=== PATIENT | female | born 1940 | race Two or more races ===

== ENCOUNTER 2018-04-29 13:40 | Emergency (ER) | payer OTHER ==
[~2018-04-29] VITALS: Ht 154.9 cm; Wt 93.9 kg
[~2018-04-29 13:40] MED LIST: ADULT ASPIRIN81 MG; GLUCOPHAGE XR750 MG; KETO10TA2 PO; LOSARTAN-HCTZ1 EAC2; OMEPRAZOLE20 MG; PRAVASTATIN SOD40 MG; TRAM1TAB98 PO; ULTRAM50 MG; VERAPAMIL ER240 MG
[2018-04-29] MEDS ORDERED: ULTRACET PO (16:15)
[2018-05-03] MEDS ORDERED: FOLGARD TABLET1 EACH PO (13:20)
[2018-05-03] MEDS ORDERED: VERAPAMIL ER240 MG PO (13:20)
== END 2018-04-29 17:42 | disposition home or self-care (01) ==
LOC: ER 13:40
DX: S42.342A Displaced spiral fracture of shaft of humerus, left arm, initial encounter for closed fracture (principal); S00.03XA Contusion of scalp, initial encounter; W18.09XA Striking against other object with subsequent fall, initial encounter; Y93.89 Activity, other specified; Y92.018 Other place in single-family (private) house as the place of occurrence of the external cause; Y99.8 Other external cause status

== ENCOUNTER 2018-05-02 17:52 | Outpatient (CLI) | payer OTHER ==
[~2018-05-02 17:52] MED LIST changes: -FOLGARD TABLET1 EACH PO; -OXYC1TAB9 PO; -VERAPAMIL ER240 MG PO; -XARELTO10 MG PO
[2018-05-03] MEDS ORDERED: FOLGARD TABLET1 EACH PO (13:20)
[2018-05-03] MEDS ORDERED: VERAPAMIL ER240 MG PO (13:20)
== END 2018-05-02 18:11 | disposition home or self-care (01) ==
LOC: LAB 17:52
DX: D64.89 Other specified anemias (principal); E88.89 Other specified metabolic disorders; D68.8 Other specified coagulation defects; N39.0 Urinary tract infection, site not specified; Z22.322 Carrier or suspected carrier of Methicillin resistant Staphylococcus aureus; Z76.89 Persons encountering health services in other specified circumstances; B99.8 Other infectious disease

== ENCOUNTER → 2018-05-02 | Outpatient (CLI) | payer OTHER ==
[~2018-05-02] MED LIST changes: +FOLGARD TABLET1 EACH PO; +OXYC1TAB9 PO; +ULTRACET PO; +VERAPAMIL ER240 MG PO; +XARELTO10 MG PO
== END | disposition home or self-care (01) ==
LOC: RAD 501 13:11
DX: S42.342A Displaced spiral fracture of shaft of humerus, left arm, initial encounter for closed fracture (principal)

== ENCOUNTER 2018-05-04 07:00 | Day surgery (SDC) | payer OTHER ==
[~2018-05-04] VITALS: Ht 154.9 cm; Wt 93.9 kg
[~2018-05-04 07:00] MED LIST changes: +FOLGARD TABLET1 EACH PO; +VERAPAMIL ER240 MG PO
[2018-05-05] MEDS ORDERED: XARELTO10 MG PO (12:57)
[2018-05-05] MEDS ORDERED: OXYC1TAB9 PO (12:58)
== END 2018-05-05 10:00 | disposition home or self-care (01) ==
LOC: CIR.AMB 07:00 → SURH 08:30 → O/R 08:30 → SURH 12:21 → EDSTATUS 12:45 → O/R 15:52 → SURG 15:52 → CIR.AMB 05-05 10:00 → O/R 05-05 13:41 → SURG 05-05 13:41
DX: S42.332A Displaced oblique fracture of shaft of humerus, left arm, initial encounter for closed fracture (principal); M75.122 Complete rotator cuff tear or rupture of left shoulder, not specified as traumatic; M19.012 Primary osteoarthritis, left shoulder

== ENCOUNTER 2018-06-07 13:09 | Outpatient (CLI) | payer OTHER ==
[~2018-06-07 13:09] MED LIST changes: +OXYC1TAB9 PO; +XARELTO10 MG PO
== END 2018-06-07 13:25 | disposition home or self-care (01) ==
LOC: RAD 501 13:09
DX: S42.342D Displaced spiral fracture of shaft of humerus, left arm, subsequent encounter for fracture with routine healing (principal)

== ENCOUNTER 2018-07-26 08:11 | Outpatient (CLI) | payer OTHER | END 2018-07-26 08:23 | disposition home or self-care (01) | LOC: RAD 501 08:11 | DX: S42.342D Displaced spiral fracture of shaft of humerus, left arm, subsequent encounter for fracture with routine healing (principal) ==

== ENCOUNTER 2020-09-29 08:06 | Emergency (ER) | payer OTHER ==
[~2020-09-29] VITALS: Ht 162.6 cm; Wt 88.0 kg
[2020-09-29] MEDS ORDERED: LOSARTAN-HCTZ1 EAC1 PO (08:18)
== END 2020-09-29 14:57 | disposition home or self-care (01) ==
LOC: ER 08:06
DX: R00.2 Palpitations (principal); Z03.818 Encounter for observation for suspected exposure to other biological agents ruled out

== ENCOUNTER 2022-05-11 15:05 | Outpatient (CLI) | payer OTHER ==
[~2022-05-11 15:05] MED LIST changes: +LOSARTAN-HCTZ1 EAC1 PO
== END 2022-05-11 15:09 | disposition home or self-care (01) ==
LOC: RAD 15:05
PROVIDERS: ATTEND Orthopaedic Surgery
DX: M25.562 Pain in left knee (principal)

== ENCOUNTER 2023-02-06 17:58 | Emergency (ER) | payer OTHER ==
[~2023-02-06] VITALS: Ht 162.6 cm; Wt 81.2 kg
== END 2023-02-06 20:45 | disposition home or self-care (01) ==
LOC: ER 17:59
DX: S93.491A Sprain of other ligament of right ankle, initial encounter (principal); X50.9XXA Other and unspecified overexertion or strenuous movements or postures, initial encounter; Y93.89 Activity, other specified; Y92.89 Other specified places as the place of occurrence of the external cause; I10 Essential (primary) hypertension; E11.9 Type 2 diabetes mellitus without complications; Z79.84 Long term (current) use of oral hypoglycemic drugs
CPT/HCPCS: 73610; 73630; 96372; 99284; J1885

== ENCOUNTER 2023-08-13 19:56 | Emergency (ER) | payer OTHER ==
[~2023-08-13] VITALS: Ht 157.5 cm; Wt 85.7 kg
[~2023-08-13 19:56] MED LIST changes: +AMLODIPINE BESYL5 MG PO; +ELIQUIS5 MG PO; +LIPITOR20 MG PO; +LOSARTAN POTAS100 MG PO; +MECLIZINE HCL25 MG PO; +METFORMIN HCL1000 M3 PO; +OMEPRAZOLE20 MG PO; +TOPROL XL50 M1 PO
[2023-08-13] MEDS ORDERED: CRESTOR40 MG PO (20:06)
== END 2023-08-13 21:36 | disposition home or self-care (01) ==
LOC: ER 19:57
DX: E11.65 Type 2 diabetes mellitus with hyperglycemia (principal); R53.81 Other malaise; Z79.84 Long term (current) use of oral hypoglycemic drugs

== ENCOUNTER 2024-05-11 18:12 | Emergency (ER) | payer OTHER ==
[~2024-05-11] VITALS: Ht 157.5 cm; Wt 82.6 kg
[~2024-05-11 18:12] MED LIST changes: +CRESTOR40 MG PO
[2024-05-11] MEDS ORDERED: GLIMEPIRIDE2 MG PO (18:24)
[2024-05-11] MEDS ORDERED: ONDANSETRON HCL 2 MG/ML VIAL IV ONE (19:45)
[2024-05-11] MEDS ORDERED: 0.9 % SODIUM CHLORIDE 1,000 ML IV SCH (19:45)
[2024-05-11] MEDS ORDERED: FAMOTIDINE/PF 20 MG/2 ML VIAL IV PUSH ONE (19:45)
[2024-05-11] MEDS ORDERED: HYOSCYAMINE SULFATE 0.125 MG TAB.SUBL SL ONE (19:45)
[2024-05-11] MEDS ORDERED: ACETAMINOPHEN 500 MG GEL..CAP PO ONE ×2 (20:00→20:16)
[2024-05-11] MEDS ORDERED: ONDANSETRON HCL 2 MG/ML VIAL ONE (20:15)
[2024-05-11] MEDS ORDERED: HYOSCYAMINE SULFATE 0.125 MG TAB.SUBL ONE (20:16)
[2024-05-11] MEDS ORDERED: FAMOTIDINE/PF 20 MG/2 ML VIAL ONE (20:16)
[2024-05-11 20:43] LABS: HEMOGLOBIN 13.3 g/dL (12.0-15.00); MEAN CELL VOLUME 92.5 fL (80.00-100.00); MEAN CORPUSCULAR HEMOGLOBIN 30.6 pg (27.00-32.0); MEAN CORPUSCULAR HGB CONC 33.1 g/dl (32.0-36.0); PLATELET COUNT 187 K/uL (150-450); RED BLOOD COUNT 4.33 M/uL (4.00-6.00); RED CELL DISTRIBUTION WIDTH 13.2 % (11.5-14.5)
[2024-05-11 21:04] LABS: CREATININE SERUM 0.93 mg/dL (0.55-1.02); GFR 57.86; POTASSIUM 3.66 mEq/L (3.5-5.1)
== END 2024-05-11 23:48 | disposition home or self-care (01) ==
LOC: ER 18:15
PROVIDERS: Emergency Medicine
DX: K52.89 Other specified noninfective gastroenteritis and colitis (principal); I48.91 Unspecified atrial fibrillation; R19.7 Diarrhea, unspecified; Z20.822 Contact with and (suspected) exposure to COVID-19; I10 Essential (primary) hypertension; E11.9 Type 2 diabetes mellitus without complications; Z79.84 Long term (current) use of oral hypoglycemic drugs

== ENCOUNTER 2024-09-23 11:47 | Emergency (ER) | payer OTHER ==
[~2024-09-23] VITALS: Ht 152.4 cm; Wt 82.6 kg
[~2024-09-23 11:47] MED LIST changes: +GLIMEPIRIDE2 MG PO
[2024-09-23] MEDS ORDERED: KETOROLAC TROMETHAMINE 60 MG VIAL IM STA (13:40)
[2024-09-23] MEDS ORDERED: CEFTRIAXONE SODIUM 1,000 MG VIAL IM STA (13:40)
[2024-09-23] MEDS ORDERED: HYDROCODONE/CHLORPHEN P-STIREX 5 ML ML PO STA (13:41)
[2024-09-23 14:38] LABS: BASO % 0.5 % (0.1-1.2); EOS # 0.00 (0.04-0.54); EOS % 0.0 % (0.7-7.0); LYMPH # 1.52 (1.18-3.74); LYMPH % 24.4 % (19.3-53.1); MEAN PLATELET VOLUME 11.80 fl (9.4-12.4); MONO # 0.63 (0.24-0.82); MONO % 10.1 % (4.7-12.5); NEUT # 4.02 (1.56-6.13); NEUT % 64.7 % (34.0-71.1); RED CELL DISTRIBUTION WIDTH 13.6 % (11.6-14.4)
[2024-09-23 15:27] LABS: COVID-19 AG POSITIVE (NEGATIVE)
== END 2024-09-23 16:53 | disposition home or self-care (01) ==
LOC: ER 11:47
DX: U07.1 COVID-19 (principal); J06.9 Acute upper respiratory infection, unspecified; R51.9 Headache, unspecified
CPT/HCPCS: 36415; 71045; 96372; 99283; J0696; J1885